=== PATIENT | male | born 1965 | race Caucasian/White ===

== ENCOUNTER 2023-07-26 11:02 | Emergency (ER) | payer OTHER, SELFPAY ==
--- NOTE | 2023-07-26 11:10 | DI.RAD.S_ITS ---
PROCEDURE: XR FOOT RT MIN 3V INDICATIONS: stepped on nail, eval for FB/fx TECHNIQUE: 3 views of the foot were acquired. COMPARISON: None. FINDINGS: Bones: No fractures or dislocations. No suspicious bony lesions. Soft tissues: No tibiotalar joint effusion. Achilles tendon appears normal. No radiodense foreign body. IMPRESSION: No acute bony abnormality. No radiodense foreign body. Dictated by: Jyothi Bean MD, PhD on 07/26/2023 at 11:46 Approved by: Jyothi Bean MD, PhD on 07/26/2023 at 11:47
[2023-07-26 11:11] VITALS: BP 140/69; PULSE 82; RESP 16; TEMP 36.8; O2SAT 97; BMI 28.7
--- NOTE | 2023-07-26 11:22 | PC.NURSE ---
Patient stepped on a dirty nail that went through his boot and into his foot. He went to the pharmacy and got a tetanus shot yesterday. The foot is redened and swollen locally to the injection site. no fever, no drainage.
--- NOTE | 2023-07-26 12:09 | ED.LOWEXIN ---
HPI - Extremity Injury (Lower) General Chief Complaint: Extremity Injury, Lower Stated Complaint: R Foot Stepped on Nail, swelling, infection Time Seen by Provider: 07/26/23 11:10 Source: patient Mode of arrival: Ambulatory History of Present Illness HPI Narrative: 57-year-old male stepped on a nail 2 days ago Sunday, nail penetrated his boot and sock, puncture wound plantar aspect right foot, some increasing pain, no redness or weeping, nail is intact, brought into the department with same piece of wood that he stepped on. No fevers or chills. No swelling to the dorsum of the foot. Last tetanus shot was yesterday that he went and got at local [employer]. He is interested in antibiotics. NKDA. Related Data Previous Rx's Medication Instructions Recorded ciprofloxacin HCl 500 mg tablet 500 mg PO BID 7 days #14 tabs 07/26/23 Patient History Social History Smoking Status: Never smoker Smoking Status: Never smoker alcohol intake frequency: a few times a week Substance Use Type: does not use Exam Narrative Exam Narrative: GENERAL: Well-developed patient, in mild distress. HEAD: Atraumatic. Normocephalic. EYES: Pupils equal round and reactive. Extraocular motions intact. No scleral icterus. No injection or drainage. ENT: Nose without bleeding, purulent drainage. Throat without erythema, tonsillar hypertrophy or exudate. Airway patent. NECK: Trachea midline. Non tender CARDIOVASCULAR: Regular rate and rhythm without murmurs, gallops, or rubs. RESPIRATORY: Clear to auscultation. Breath sounds equal bilaterally. No wheezes, rales, or rhonchi. GASTROINTESTINAL: Abdomen soft, non-tender, nondistended. EXTREMITIES: Small puncture wound on right plantar foot lateral aspects and proximally proximal to 5th MTP, no redness or swelling or streaking, no palpable foreign body. No crepitance, no drainage. No swelling or redness to the dorsum of the foot or adjacent toes. BACK: Nontender without deformity or crepitance. No flank tenderness. NEURO: AOx3. SKIN: No rash or erythema of visible areas Initial Vital Signs Initial Vital Signs: Vital Signs Temperature 98.2 F 07/26/23 11:11 Pulse Rate 82 07/26/23 11:11 Respiratory Rate 16 07/26/23 11:11 Blood Pressure 140/69 07/26/23 11:11 Pulse Oximetry 97 07/26/23 11:11 Oxygen Delivery Method Room Air 07/26/23 11:11 Course Orders Ordered: Discontinued Medications Ciprofloxacin (Ciprofloxacin 250 Mg Tablet) 500 mg PO NOW ONE Stop: 07/26/23 12:40 Last Admin: 07/26/23 12:51 Dose: 500 mg Documented By: MATTHEW Vital Signs Vital signs: Vital Signs - 8 hr 07/26/23 13:02 07/26/23 13:03 Blood Pressure 133/72 Pulse Oximetry 99 [facility] - Extremity Injury (Lower) Imaging Data Extremity x-ray #1: Radiologist's Impression: [address] [address] XRay Report Signed Patient: Rashawn De Anda MR#: [id number] : 1965 Acct:[id number] Age/Sex: 57 / M Date of Service: 07/26/23 Loc: ED Accession Number: [id number] Procedure: XR foot RT min 3V Ordering Provider: Kali Carrillo MD PROCEDURE: XR FOOT RT MIN 3V INDICATIONS: stepped on nail, eval for FB/fx TECHNIQUE: 3 views of the foot were acquired. COMPARISON: None. FINDINGS: Bones: No fractures or dislocations. No suspicious bony lesions. Soft tissues: No tibiotalar joint effusion. Achilles tendon appears normal. No radiodense foreign body. IMPRESSION: No acute bony abnormality. No radiodense foreign body. Dictated by: Jyothi Bean MD, PhD on 07/26/2023 at 11:46 Approved by: Jyothi Bean MD, PhD on 07/26/2023 at 11:47 [facility] Narrative Medical decision making narrative: Plantar puncture wound nail through boot/sock 2 days ago with some pain, tenderness and puncture site plantar 5th MTP area, no weeping, no redness, no streaking. We discussed coring that area out to excise any potential piece of rubber from the shoe, or material from the sock, he declines this for now. He would like a trial of antibiotics. P.o. Cipro dose now, prescription sent to his pharmacy 7 day course. Consider local podiatry follow up, nobody on-call. Recheck wound here tomorrow or over the weekend advised. Return precautions discussed Discharge Plan Departure Patient Disposition: Home Clinical Impression: Puncture wound of plantar aspect of foot Activity Restrictions/Additional Instructions: Right lateral puncture wound bottom foot 2 days ago, through a boot/sock at private residence, with some pain, you obtained a tetanus shot at local [facility] yesterday, were advised to consider starting some antibiotics, oral ciprofloxacin dose 1st dose now, prescription for 7 day course. X-ray negative for any metallic foreign body, or any fractures. We talked about retained foreign body parts from the shoe and/or sock that might need to be cord out in order to get better. You did not want to have a procedure today but we are aware that you could have retained foreign material that might need to come out. Wound check advised in 2 days. Here with regular provider. You were visiting area from [facility]. We attempted reaching local podiatry, no one on-call or available to arrange close follow up. Wound check here in the emergency department in 2 days unless you can make other arrangements. Return earlier for any change worsening symptoms or any concerns prior Prescriptions: New ciprofloxacin HCl 500 mg tablet 500 mg PO BID 7 Days Qty: 14 0RF Stand Alone Forms: Patient Portal/API
[2023-07-26] MEDS: CIPROFLOXACIN 250 MG TABLET 500 MG PO (12:51)
[2023-07-26 13:02] VITALS: O2SAT 99
[2023-07-26 13:03] VITALS: BP 133/72
== END 2023-07-26 13:06 | disposition home or self-care (01) ==
PROVIDERS: Emergency Provider Emergency Medicine
DX: S91.331A Puncture wound without foreign body, right foot, initial encounter (principal); W45.0XXA Nail entering through skin, initial encounter
CPT/HCPCS: 73630; 99283